=== PATIENT | male | born 1970 | race Caucasian/White ===

== ENCOUNTER → 2019-09-02 09:47 | Outpatient (BNVA) | payer OTHER, SELFPAY | PROVIDERS: PCP Family Medicine; Visit Provider Family Medicine | DX: D22.9 Melanocytic nevi, unspecified (principal) | CPT/HCPCS: 88304 ==

== ENCOUNTER → 2019-11-21 12:10 | Outpatient (BNVA) | payer OTHER, SELFPAY | PROVIDERS: PCP Family Medicine; Visit Provider Nurse Practitioner Family | DX: I10 Essential (primary) hypertension (principal); R73.9 Hyperglycemia, unspecified | CPT/HCPCS: 73610; 80053; 80061; 83036; 85025 ==

== ENCOUNTER → 2019-12-28 17:14 | Outpatient (BNVA) | payer OTHER, SELFPAY | PROVIDERS: PCP Family Medicine; Visit Provider Nurse Practitioner Family | DX: J40 Bronchitis, not specified as acute or chronic (principal); R50.9 Fever, unspecified; R11.2 Nausea with vomiting, unspecified; Z20.818 Contact with and (suspected) exposure to other bacterial communicable diseases | CPT/HCPCS: 87635 ==

== ENCOUNTER → 2020-02-16 10:36 | Outpatient (BNVA) | payer OTHER, SELFPAY | PROVIDERS: PCP Family Medicine; Visit Provider Nurse Practitioner Family | DX: R06.02 Shortness of breath (principal); M79.671 Pain in right foot | CPT/HCPCS: 71046; 73630 ==

== ENCOUNTER → 2020-02-21 09:06 | Outpatient (BNVA) | payer OTHER, SELFPAY | PROVIDERS: PCP Nurse Practitioner Family; Visit Provider Nurse Practitioner Family | DX: I10 Essential (primary) hypertension (principal); R73.9 Hyperglycemia, unspecified; M10.9 Gout, unspecified | CPT/HCPCS: 80053; 80061; 82607; 83036; 84443; 84550; 85025 ==

== ENCOUNTER → 2020-03-22 11:52 | Outpatient (BNVA) | payer OTHER, SELFPAY | PROVIDERS: PCP Nurse Practitioner Family; Visit Provider Nurse Practitioner Family | DX: M10.9 Gout, unspecified (principal) | CPT/HCPCS: 84550 ==

== ENCOUNTER 2020-06-25 09:28 | Outpatient (CLI) | payer OTHER, SELFPAY ==
--- NOTE | 2020-06-25 09:30 | USCV_ITS ---
Freddie Alcantar Age: 50 Gender: M : 1970 Exam Date: 06/25/2020 09:55 Ordering Phys: Katherine Day MD ([email or web address]) Technologist: Brian Cook [place] [facility] [place]: WEAKNESS POST COVID BP: 135 / 80 HR: 85 Rhythm: Sinus Technical Quality: GOOD MEASUREMENTS (Male / Female) Normal Values 2D ECHO LV Diastolic Diameter PLAX 3.5 cm 4.2 - 5.9 / 3.9 - 5.3 cm LV Systolic Diameter PLAX 2.8 cm IVS Diastolic Thickness 1.3 cm 0.6 - 1.0 / 0.6 - 0.9 cm IVS Systolic Thickness 1.3 cm LVPW Diastolic Thickness 1.2 cm 0.6 - 1.0 / 0.6 - 0.9 cm LVPW Systolic Thickness 1.5 cm LVOT Diameter 2.1 cm LV Ejection Fraction 2D Teich 31.9 % LA Diameter 3.9 cm LA Width 2.8 cm LA Height 4.1 cm RA Width 3.1 cm RA Height 3.8 cm Aorta at Sinotubular Diameter 2.8 cm M-MODE LV Diastolic Diameter MM 5.6 cm 4.2 - 5.9 / 3.9 - 5.3 cm LV Systolic Diameter MM 3.2 cm LV Ejection Fraction MM Teich 73.5 % IVS Diastolic Thickness MM 0.8 cm 0.6 - 1.0 / 0.6 - 0.9 cm IVS Systolic Thickness MM 1.7 cm LVPW Diastolic Thickness MM 0.9 cm 0.6 - 1.0 / 0.6 - 0.9 cm LVPW Systolic Thickness MM 1.7 cm RV Diastolic Diameter MM 1.3 cm Aortic Annulus Diameter 3.8 cm LA Ao Ratio MM 1.1 MV E Point Septal Separation 0.4 cm DOPPLER AV Peak Velocity 132.0 cm/s LVOT Peak Velocity 98.0 cm/s AV Area Cont Eq vti 2.9 cm squared AV Area Cont Eq pk 2.5 cm squared MV Area PHT 5.0 cm squared Mitral E to A Ratio 1.5 MV E' Velocity 48.5 cm/s Mitral E to MV E' Ratio 7.4 Mitral E to LV E' Lateral Ratio 6.5 Mitral E to LV E' Septal Ratio 8.6 TR Peak Velocity 231.0 cm/s TR Peak Gradient 21.3 mmHg TV Peak E Velocity 82.0 cm/s Right Atrial Pressure 3.0 mmHg Pulmonary Artery Systolic Pressu 24.3 mmHg PV Peak Velocity 109.0 cm/s FINDINGS Left Ventricle Normal left ventricular size and systolic function, EF 65%. No regional wall motion abnormalities. Right Ventricle The right ventricle is normal in size and function. Right Atrium The right atrium is normal in size. Left Atrium The left atrium is normal in size. Mitral Valve Mild mitral valve regurgitation. Aortic Valve No gross abnormalities noted Tricuspid Valve Trace tricuspid valve regurgitation. Pulmonic Valve No gross abnormalities noted Pericardium Normal pericardium without effusion. Aorta Normal ascending aorta dimension. CONCLUSIONS Normal left ventricular size and systolic function, EF 65%. No regional wall motion abnormalities. Mild mitral valve regurgitation. Trace tricuspid valve regurgitation. There is no pericardial effusion. There are no intracardiac masses. No previous study is available for comparison. Dr Mina Cardona MD FACC (Electronically Signed) Final Date: 25 June 2020 21:24 S
== END 2020-06-25 09:29 | disposition home or self-care (01) ==
LOC: RAD 09:32
PROVIDERS: PCP Nurse Practitioner Family; Visit Provider Internal Medicine Cardiovascular Disease
DX: R53.1 Weakness (principal); I08.1 Rheumatic disorders of both mitral and tricuspid valves
CPT/HCPCS: 93306

== ENCOUNTER → 2020-10-23 10:08 | Outpatient (BNVA) | payer OTHER, SELFPAY | PROVIDERS: PCP Nurse Practitioner Family; Visit Provider Nurse Practitioner Family | DX: I10 Essential (primary) hypertension (principal); M10.9 Gout, unspecified; R73.9 Hyperglycemia, unspecified | CPT/HCPCS: 80053; 80061; 83036; 84550; 85025 ==

== ENCOUNTER → 2021-09-12 16:37 | Outpatient (BNVA) | payer OTHER, SELFPAY | PROVIDERS: PCP Nurse Practitioner Family; Visit Provider Family Medicine | DX: M10.9 Gout, unspecified (principal); I10 Essential (primary) hypertension; R73.9 Hyperglycemia, unspecified; R06.02 Shortness of breath; Z12.11 Encounter for screening for malignant neoplasm of colon | CPT/HCPCS: 71046; 80053; 80061; 83036; 84550; 85025; G0103 ==

== ENCOUNTER 2021-10-29 09:09 | Outpatient (CLI) | payer OTHER, SELFPAY ==
--- NOTE | 2021-10-29 11:44 | PFTS_ITS ---
Date of Study:10/29/21 Date of Dictation: 11/02/2021 MECHANICS: Postbronchodilator forced vital capacity (FVC) is normal. Prebronchodilator FEV1 is moderately reduced. Postbronchodilator forced expiratory volume in one second (FEV1) is normal.? FEV1/FVC is reduced. There is significant postbronchodilator response FLOW VOLUME LOOP: Sloping of expiratory limb suggestive of airway obstruction LUNG VOLUMES:not measured DIFFUSING CAPACITY FOR CARBON MONOXIDE: not measured INTERPRETATION: The spirometry suggestive of obstruction which has improved significantly post bronchodilation. Lung volumes and Gas transfer are not measured.? Clinical correlation recommended. MTDD
== END 2021-10-29 09:10 | disposition home or self-care (01) ==
PROVIDERS: PCP Nurse Practitioner Family; Visit Provider Family Medicine
DX: R06.02 Shortness of breath (principal)
CPT/HCPCS: 94060; J7614

== ENCOUNTER → 2021-11-28 10:26 | Outpatient (BNVA) | payer OTHER, SELFPAY | PROVIDERS: PCP Nurse Practitioner Family; Visit Provider Internal Medicine Pulmonary Disease | DX: R06.02 Shortness of breath (principal) | CPT/HCPCS: 82785; 85025; 86003 ==

== ENCOUNTER 2022-01-21 10:06 | Outpatient (CLI) | payer OTHER, SELFPAY ==
--- NOTE | 2022-01-21 14:17 | PFTS_ITS ---
Date of Study:01/21/22 Date of Dictation: MECHANICS: Forced vital capacity (FVC) is normal. Forced expiratory volume in one second (FEV1) is normal. FEV1/FVC is normal . FLOW VOLUME LOOP: No peak expiratory flow in the forced expiratory maneuver. LUNG VOLUMES: Total lung capacity (TLC) is normal. Residual volume (RV) is normal. DIFFUSING CAPACITY FOR CARBON MONOXIDE: Normal. INTERPRETATION: The prebronchodilator spirometry is consistent with moderate airflow obstruction. The postbronchodilator spirometry is normal. There is a significant postbronchodilator response. Lung volumes are normal. Gas exchange (DLCO) is normal. MTDD
== END 2022-01-21 10:07 | disposition home or self-care (01) ==
PROVIDERS: PCP Nurse Practitioner Family; Visit Provider Internal Medicine Pulmonary Disease
DX: R06.02 Shortness of breath (principal)
CPT/HCPCS: 94060; 94726; 94729; J7614

== ENCOUNTER → 2022-12-03 09:32 | Outpatient (BNVA) | payer OTHER, SELFPAY | PROVIDERS: PCP Nurse Practitioner Family; Visit Provider Nurse Practitioner Family | DX: M10.9 Gout, unspecified (principal); I10 Essential (primary) hypertension; Z12.5 Encounter for screening for malignant neoplasm of prostate; R73.9 Hyperglycemia, unspecified | CPT/HCPCS: 80053; 80061; 83036; 84443; 84550; 85025; G0103 ==

== ENCOUNTER 2023-11-05 08:39 | Day surgery (SDC) | payer OTHER, SELFPAY ==
--- NOTE | 2023-11-05 08:59 | W.PM.OPSFHP ---
Same Day Surgery H&P Indication for Procedure/HPI DATE OF PROCEDURE: November 05, 2023 CHIEF COMPLAINT/INDICATIONFOR SURGICAL PROCEDURE: need for screening colonoscopy PREOP DIAGNOSIS: need for screening colonoscopy PLANNED PROCEDURE: Operation Date: 11/05/23 09:40 Proposed Procedures p Colonoscopy 41967, G0121, Z12.11(Not Applicable) - Oswaldo Delacruz MD Medications/Allergies* Home Medications Medication Instructions Recorded Confirmed Type aspirin 81 mg tablet,delayed 81 mg PO DAILY PRN Pain 11/29/20 11/03/23 History release montelukast 10 mg tablet 10 mg PO DAILY PRN Allergy Symptoms 01/22/23 11/03/23 History (Singulair) Allergies/Adverse Reactions Allergy/AdvReac Type Severity Reaction Status Date / Time doxycycline Allergy rash Verified 11/03/23 12:38 Pertinent History/Comorbid Conditions* Medical History (Updated 12/03/22 @ 09:14 by RANJANA Jenkins) Bronchitis HTN (hypertension) Family History (Updated 11/28/21 @ 09:24 by Joellen Leos LPN) Lung disease Father COPD but never smoker Family/Other COPD; Social History Smoking and tobacco/nicotine status: never used tobacco/nicotine Second hand smoke exposure: No Alcohol intake: current Substance/Drug Use: never Lives independently: Yes Household members: spouse Marital status: Current occupational status: employed Current occupation: [employer] Current gender identity: Male Pertinent Exam Findings alert, oriented x 3, clear to auscultation bilaterally and procedure specific exam findings Recommendations Surgery/Procedure today Coding Level of Care Code Acute Code for Chg Fwd
[2023-11-05 09:05] VITALS: BP 97/63; PULSE 79; RESP 18; TEMP 36.2; O2SAT 96
--- NOTE | 2023-11-05 09:09 | P.ANESASSM_ITS ---
Pre-Anesthetic Assessment Height/Weight: Height 1.8 m Weight 92.986 kg Temp Pulse Resp BP Pulse Ox O2 Del Method 97.2 F L 79 18 97/63 96 Room Air 11/05/23 09:05 11/05/23 09:05 11/05/23 09:05 11/05/23 09:05 11/05/23 09:05 11/05/23 09:05 Preop Diagnosis: need for screening colonoscopy Operation Date: 11/05/23 09:40 Proposed Procedures p Colonoscopy 81642, G0121, Z12.11(Not Applicable) - Oswaldo Delacruz MD Familial anesthetic complications: none Was Beta Leonides taken within 24 hours: Yes Was Clonidine taken within 24 hours: N/A Last intake: Intake Last Liquid Date 11/04/23 Last Liquid Time 23:30 Last Solid Date 11/03/23 Last Solid Time 18:00 Social Alcohol (daily) and Tobacco (chew) Exam alert, oriented x 3, clear to auscultation bilaterally and regular rate & rhythm Airway Submandibular: within normal limits Cervical ROM: within normal limits Mallampati: Class II Dentition: full Pulmonary Asthma and Sleep Apnea CV/HEM Arrythmia and Hypertension leaky heart valve, palpatations following covid None reported Hepatic None reported GI Gastroesophageal Reflux Disease Metabolic Hyperlipidemia [facility] None reported Neuropsych None reported Anesthetic Plan ASA status: 2 Anesthesia: MAC Medications/Allergies Home Medications Medication Instructions Recorded Confirmed Last Taken Type aspirin 81 mg tablet,delayed 81 mg PO DAILY PRN Pain 11/29/20 11/03/23 Unknown History release allopurinol 100 mg tablet 200 mg (2 x 100 mg) PO DAILY #180 12/03/22 11/03/23 11/04/23 Rx tabs diclofenac sodium 75 mg 75 mg PO BID PRN pain #180 tabs 12/03/22 11/03/23 Unknown Rx tablet,delayed release fluticasone propionate 50 1 spray intranasal BID PRN allergy 12/03/22 11/03/23 Unknown Rx mcg/actuation nasal symptoms #16 grams spray,suspension (Flonase Allergy Relief) levocetirizine 5 mg tablet (Xyzal) 5 mg PO DAILY #90 tabs 12/03/22 11/03/23 Unknown Rx lisinopril 20 mg tablet See Rx Instructions .Route 12/03/22 11/03/23 11/04/23 Rx .COMPLEX #180 tabs metoprolol succinate 25 mg 25 mg PO DAILY #90 tabs 01/22/23 11/03/23 11/04/23 Rx tablet,extended release 24 hr montelukast 10 mg tablet 10 mg PO DAILY PRN Allergy Symptoms 01/22/23 11/03/23 Unknown History (Singulair) levalbuterol tartrate 45 2 inh inhalation Q6H PRN shortness 02/13/23 11/03/23 Unknown Rx mcg/actuation aerosol inhaler of breath or wheezing #15 grams (Xopenex HFA) budesonide-formoterol HFA 80 2 puff inhalation Q12H #10.2 grams 06/24/23 11/03/23 Unknown Rx mcg-4.5 mcg/actuation aerosol inhaler (Symbicort) nystatin 100,000 unit/mL oral 1 ml PO DAILY #250 mL 06/24/23 11/03/23 Unknown Rx suspension Allergies Allergy/AdvReac Type Severity Reaction Status Date / Time doxycycline Allergy rash Verified 11/03/23 12:38 [facility] Anesthesia Medical History Bronchitis HTN (hypertension) Family History Father Lung disease COPD but never smoker Family/Other Lung disease COPD; Social History Smoking and tobacco/nicotine status: never used tobacco/nicotine Second hand smoke exposure: No Alcohol intake: current Substance/Drug Use: never Lives independently: Yes Household members: spouse Marital status: Current occupational status: employed Current occupation: [employer] Current gender identity: Male Data Anesthesia Cardiac Studies: Echocardiogram Ultrasound 06/25/20
[2023-11-05] MEDS: sodium chloride 0.9% 1,000 ML 30 ML IV (09:10)
[2023-11-05 09:51] VITALS: BP 95/69; PULSE 69; RESP 16; TEMP 36.5; O2SAT 95
[2023-11-05 10:09] VITALS: BP 110/78; PULSE 61; RESP 18; O2SAT 95
[2023-11-05 10:21] VITALS: BP 113/77; PULSE 67; RESP 18; O2SAT 96
--- NOTE | 2023-11-05 10:25 | ANE.PACU2 ---
Inpatient post-anesthesia follow up: Airway intact: Yes Vital signs: Temperature 97.7 F Pulse Rate 67 Respiratory Rate 18 Blood Pressure 113/77 Pulse Oximetry 96 Oxygen Delivery Me thod Room Air Oxygen Flow Rate Fraction of Inspir ed Oxygen Hydration adequate: Yes Nausea and vomiting: No Pain level: 1 Mental status: Baseline
== END 2023-11-05 10:24 | disposition home or self-care (01) ==
PROVIDERS: PCP Nurse Practitioner Family; Visit Provider Surgery
PROC: 0DJD8ZZ Inspection of Lower Intestinal Tract, Via Natural or Artificial Opening Endoscopic (ICD-10-PCS; CPT 45378; principal; 2023-11-05 09:40)
DX: Z12.11 Encounter for screening for malignant neoplasm of colon (principal); D12.0 Benign neoplasm of cecum; I10 Essential (primary) hypertension; F17.220 Nicotine dependence, chewing tobacco, uncomplicated; G47.30 Sleep apnea, unspecified; K21.9 Gastro-esophageal reflux disease without esophagitis; E78.5 Hyperlipidemia, unspecified; Z79.82 Long term (current) use of aspirin
CPT/HCPCS: 45380; 88305; J2704; J7030

== ENCOUNTER → 2023-12-15 09:06 | Outpatient (BNVA) | payer OTHER, SELFPAY | PROVIDERS: PCP Nurse Practitioner Family; Visit Provider Nurse Practitioner Family | DX: I10 Essential (primary) hypertension (principal); M10.9 Gout, unspecified; R73.9 Hyperglycemia, unspecified | CPT/HCPCS: 80053; 80061; 83036; 84443; 84550; 85025; G0103 ==

== ENCOUNTER → 2024-04-27 12:33 | Outpatient (BNVA) | payer BC, SELFPAY | PROVIDERS: PCP Nurse Practitioner Family; Visit Provider Nurse Practitioner Family | DX: I10 Essential (primary) hypertension (principal); R73.9 Hyperglycemia, unspecified | CPT/HCPCS: 80053; 80061; 82607; 83036; 84443; 84550; 85025 ==

== ENCOUNTER 2025-01-09 09:07 | Outpatient (CLI) | payer BC, SELFPAY ==
--- NOTE | 2025-01-09 09:11 | CT_ITS ---
WS: [id number] CT NECK without and with contrast TECHNIQUE: Noncontrast and contrast-enhanced CT of the neck with coronal and sagittal reformatted images. CLINICAL INFORMATION: ATYPICAL FACIAL PAIN/NUMBNESS COMPARISON: None. DLP: 443.[address] scans at [facility] use at least one of these dose optimization techniques: automated exposure control; mA and/or kV adjustment per patient size (includes targeted exams where dose is matched to clinical indication); or iterative reconstruction. FINDINGS: Images at the tongue base degraded by dental artifact. Incidental tonsillar calcifications. Normal parotid glands. Normal submandibular glands. No evidence of supraglottic or glottic mass. Normal subglottic airway. Lung apices are well aerated. No cervical lymphadenopathy. Mild spondylitic changes cervical spine. Normal thyroid gland enhancement. No other acute findings CT/CT neck wo/w con [id number] IMPRESSION: 1. No acute neck findings 2. Normal salivary glands. 3. No evidence of supraglottic or glottic mass
[2025-01-09] MEDS: iohexol 350 mg/mL 500 mL Btl (per mL) IV (09:59)
== END 2025-01-09 09:08 | disposition home or self-care (01) ==
PROVIDERS: PCP Nurse Practitioner Family; Visit Provider Nurse Practitioner Family
DX: G50.1 Atypical facial pain (principal); J35.8 Other chronic diseases of tonsils and adenoids; M47.812 Spondylosis without myelopathy or radiculopathy, cervical region
CPT/HCPCS: 70492